=== PATIENT | male | born 1980 | race Hispanic/Latino ===

== ENCOUNTER 2024-12-03 15:48 | Emergency (ER) | payer OTHER ==
[~2024-12-03] VITALS: Ht 170.2 cm; Wt 83.9 kg
[2024-12-03 16:43] LABS: BASOPHILS % 0.1 % (0.0-1.0); EOSINOPHILS % 2.0 % (0.0-6.0); LYMPHOCYTES % 27.0 % (18.0-39.1); MONOCYTES % 6.7 % (4.4-11.3); NEUTROPHILS % 64.1 % (38.7-80.0); RED CELL DISTRIBUTION WIDTH 12.8 % (11.7-14.4)
[2024-12-03 17:00] LABS: EST GLOMERULAR FILTRATION RATE 113.0 ML/MIN (>=60)
[2024-12-03 18:46] LABS: T3 UPTAKE 31.62 % (22.5-37.0)
[2024-12-03 19:24] VITALS: PULSE 72; RESP 15; TEMP 98
[2024-12-03 19:40] VITALS: BP 124/98; PULSE 72; RESP 15; TEMP 98; O2SAT 100
== END 2024-12-03 19:41 | disposition home or self-care (01) ==
LOC: ER 18:08
DX: R53.1 Weakness (principal); G72.3 Periodic paralysis; R53.83 Other fatigue; E05.90 Thyrotoxicosis, unspecified without thyrotoxic crisis or storm
CPT/HCPCS: 36415; 80053; 84436; 84443; 84479; 85025; 99283